=== PATIENT | female | born 1965 | race Caucasian/White ===

== ENCOUNTER 2017-07-04 17:43 | Observation (INO) | payer OTHER ==
[~2017-07-04] VITALS: Ht 157.5 cm; Wt 65.8 kg
[~2017-07-04 17:43] MED LIST: ADDERALL; ADDERALL20 MG PO; AMOX TR-K CLV1 EAC4 PO; AMPHETAMINE SALTS; FLAGYL; XANAX PO
[2017-07-04 19:01] LABS: BASOPHIL COUNT 0.1 K/uL (0-0.1); EOSINOPHIL (%) 0.5 % (0-5); EOSINOPHIL COUNT 0.1 K/uL (0-0.3); HEMATOCRIT 38.8 % (36.0-46.0); IMMATURE GRANULOCYTE (%) 0.4 % (0.0-0.7); IMMATURE GRANULOCYTE COUNT 0.1 K/uL; INSTRUMENT ABS NEUTROPHIL CT 14.1 K/uL; LYMPHOCYTE COUNT 1.2 K/uL (1.0-2.8); MCH 31.2 PG (29.0-34.0); MCV 91.7 FL (83-99); MEAN PLAT.VOLUME 12.4 uM^3 (9.5-12.4); MONOCYTE (%) 4.5 % (3-12); MONOCYTE COUNT 0.7 K/uL (0-0.8); NEUTROPHIL (%) 87.2 % (45-76); NEUTROPHIL COUNT 14.1 K/uL (1.8-6.4); PLATELET COUNT 244 K/uL (156-360); RBC DIS.WIDTH-CV 12.6 % (11.8-14.6); RBC DIS.WIDTH-SD 42.5 % (39-53); RED BLOOD COUNT 4.23 M/uL (3.80-5.20); WHITE BLOOD COUNT 16.2 K/uL (4.1-10.2)
[2017-07-04 19:06] LABS: INTER. NORMALIZED RATIO 0.9; PROTHROMBIN TIME 10.3 SEC (10.2-12.9)
[2017-07-04 19:08] LABS: PTT 28.9 SEC (25-37)
[2017-07-04 19:12] LABS: CHLORIDE 106 mEq/L (99-109); POTASSIUM 3.8 mEq/L (3.7-5.4); SODIUM 140 mEq/L (136-147)
[2017-07-04 19:14] LABS: GLUCOSE 118 mg/dL (70-99)
[2017-07-04 19:15] LABS: ANION GAP 9 MEQ/L (2-14)
[2017-07-04 19:16] LABS: TOTAL BILIRUBIN 0.6 mg/dL (0.0-1.0)
[2017-07-04 19:17] LABS: ALKALINE PHOSPHATASE 68 IU/L (3-129)
[2017-07-04 19:18] LABS: GFR ESTIMATE (CALCULATED) > 59 mL/min/
[2017-07-04 19:19] LABS: UREA NITROGEN (BUN) 12 mg/dL (9-23)
[2017-07-05 00:08] LABS: ADD MIUA? YES; BILIRUBIN NEGATIVE; BLOOD NEGATIVE; COLOR YELLOW ((YELLOW)); GLUCOSE (STRIP) NEGATIVE; KETONES 20; LEUKOCYTES NEGATIVE; NITRITE NEGATIVE; PROTEIN (STRIP) NEGATIVE; UROBILINOGEN 0.2 MG/DL (0.2-1.0)
[2017-07-05 00:30] LABS: BACTERIA 3+ /HPF; EPITHELIAL CELLS 2+ /HPF; MUCUS NONE SEEN /LPF; UCUL ADDED? YES; WHITE BLOOD CELLS 0-5 /HPF (0-5)
[2017-07-05 01:52] VITALS: BP 118/71
[2017-07-05 03:41] VITALS: BP 123/68
[2017-07-05 04:07] LABS: SPECIFIC GRAVITY 1.082 (1.000-1.030)
[2017-07-05 07:47] VITALS: BP 126/64
[2017-07-05 08:31] LABS: HEMATOCRIT 35.8 % (36.0-46.0); MCH 31.6 PG (29.0-34.0); MCHC 34.4 G/DL (30.0-36.0); NRBC (%) 0.4 /100 WBC (0-0); PLAT.SUFFICIENCY VERY DECREASED; RBC DIS.WIDTH-CV 12.8 % (11.8-14.6); RBC DIS.WIDTH-SD 42.7 % (39-53); RED BLOOD COUNT 3.89 M/uL (3.80-5.20); WHITE BLOOD COUNT 4.6 K/uL (4.1-10.2)
== END 2017-07-05 09:36 | disposition home or self-care (01) ==
LOC: EME 17:43 → EDOF 23:38 → 2EAST 23:38 → ENRESERV 23:45 → 2EAST 07-05 01:43
PROVIDERS: Emergency Medicine; Surgery
DX: K40.30 Unilateral inguinal hernia, with obstruction, without gangrene, not specified as recurrent (principal); R93.3 Abnormal findings on diagnostic imaging of other parts of digestive tract; R33.9 Retention of urine, unspecified; R11.2 Nausea with vomiting, unspecified; E11.9 Type 2 diabetes mellitus without complications; I10 Essential (primary) hypertension; F32.9 Major depressive disorder, single episode, unspecified; F20.9 Schizophrenia, unspecified; M79.89 Other specified soft tissue disorders; R13.10 Dysphagia, unspecified; Z82.49 Family history of ischemic heart disease and other diseases of the circulatory system; F12.90 Cannabis use, unspecified, uncomplicated; Z88.8 Allergy status to other drugs, medicaments and biological substances
CPT/HCPCS: 74177; 80053; 81003; 83605; 85025; 85027; 85610; 85730; 87086; 99281; 99285; G0378; J1650; J2270; J2405; J3480